=== PATIENT | female | born 1945 | race Caucasian/White ===

== ENCOUNTER 2018-10-15 07:32 | Outpatient (CLI) | payer MEDICARE ==
--- NOTE | 2018-10-15 08:45 | MRI ---
MRI LEFT KNEE: DATE: 10/15/2018. PROVIDED CLINICAL HISTORY: Left knee pain. FINDINGS: The anterior cruciate ligament, posterior cruciate ligament, mediolateral ligament, and lateral colla teral ligamentous complex demonstrate an intact MR appearance, as does the extensor mechanism. The medial and lateral menisci demonstrate no definite evidence for tear. There is multifocal articular cartilage irregularity involving the patellar articular cartilage most notably involving the median ridge. Foci of full-thickness cartilage fissuring are seen with reactiv e subjacent marrow signal alteration. Similar findings are present at the lateral margin of the late ral trochlear facet. There is subcortical signal alteration present within the central aspects of th e lateral tibial plateau, presumably on the basis of overlying articular chondrosis. There is a moderate-large knee joint effusion. Regional marrow and muscular signal appear otherwise normal. IMPRESSION: 1. 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 2. Moderate-large knee joint effusion. POS: [facility]
== END 2018-10-15 07:33 | disposition home or self-care (01) ==
LOC: BICMRI 07:32
PROVIDERS: ATTEND Orthopaedic Surgery
DX: M23.92 Unspecified internal derangement of left knee (principal); M25.462 Effusion, left knee